=== PATIENT | male | born 1970 | race Caucasian/White ===

== ENCOUNTER 2016-11-17 12:50 | Outpatient (CLI) ==
--- NOTE | 2016-11-17 15:09 | MRI ---
EXAM: MRI of the right knee without contrast COMPARISON: Right knee radiographs 12/07/2009. MRI of the right knee 12/10/2008. HISTORY: Right knee pain and swelling. Previous tumor removal. TECHNIQUE: Multiplanar noncontrast MR images of the right knee were acquired using a 1.2 Jud magn et. FINDINGS: A lobulated soft tissue mass was noted within the posterolateral aspect of the distal thi gh adjacent to the sural nerve on previous study. This lesion is reportedly been resected though re sults of surgical pathology were not available at the time of dictation. A smaller 1.4 x 0.9 x 0.9 cm inversion recovery hyperintense mass with question of and entering nerve superiorly seen on image 6 of the sagittal inversion recovery sequence and image 7 of the axial series at that location conc erning for a small residual/recurrent mass. No additional soft tissue masses are identified. Linear hypointense signal involving Hoffa's fat pad which may represent arthroscopic surgery related to previous surgery and clinical correlation is recommended. There is overall diminished size of t he medial meniscus from the body through the posterior horn/root as compared to the previous study w hich may be related to interval partial meniscectomy. Appropriate clinical setting versus a progres sive degenerative type tear. Irregularity of the superior articular surface of the remnant at the p osterior horn/root with peripheral superior articular surface flap. Irregularity of the free edge i nferior articular surface of the remnant of the body concerning for a tear at that site. 1.3 x 1.2 cm T2 hyperintense lesion along the peripheral margin of the posterior root attachment of the medial meniscus which may represent ganglion/synovial cyst or parameniscal cyst. Lateral meniscus is inta ct. Intact anterior and posterior cruciate ligament fibers are identified. The medial collateral ligame nt, lateral collateral ligament complex and posterolateral corner ligaments are intact. Mild patell ar/quadriceps tendinosis without abnormal subluxation of the patella. Subcutaneous edema and ill-de fined subcutaneous fluid anteriorly. There is moderate thinning and fissuring/fibrillation of the cartilage of the patella which has over all increase in extent. Progressive thinning and fissuring of the cartilage along the opposing terry cular surface of the trochlear groove with blistering of the cartilage measuring 7 x 3 mm in extent. Mildly heterogeneous signal of the cartilage in the lateral compartment. Moderate thinning of the cartilage medial compartment which has increased in extent as compared the previous study. Moderat e joint effusion with mild synovial thickening, nonspecific. Slit-like popliteal cyst with evidence of cyst leakage/rupture. IMPRESSION: 1. Residual/recurrent mass within the posterolateral aspect of the distal thigh measuring 1.4 x 0.9 x 0.9 cm at the site of previously described mass. This is smaller than the mass described on the previous study and the patient has reportedly had interval surgical resection. Differential conside rations including a residual/recurrent neurogenic lesion such as schwannoma or neurofibroma and panchito elation with results of surgical pathology is recommended. 2. Diminished size of the medial meniscus as compared the previous study related to interval surger y and/or progressive degenerative type tear. Complex tear/retear of the remnant as described with p arameniscal cyst. 3. Progressive medial patellofemoral compartment osteoarthrosis. Mild chondrosis/chondromalacia th e lateral compartment. 4. Patellar/quadriceps tendinosis. Subcutaneous edema and ill-defined subcutaneous fluid anteriorl y. 5. Moderate joint effusion with synovitis, nonspecific. Consider aspiration if clinically warrante d. Slit-like popliteal cyst with cyst leakage/rupture.
== END 2016-11-17 12:51 | disposition home or self-care (01) ==
LOC: RAD 12:50
PROVIDERS: ATTEND Internal Medicine
DX: M25.561 Pain in right knee (principal)